=== PATIENT | female | born 1935 | race Caucasian/White ===

== ENCOUNTER 2017-11-04 07:03 | Day surgery (SDC) | payer MEDICARE, OTHER ==
[2017-11-04] VITALS (10 sets, daily range): BP systolic 123–164; BP diastolic 70–84; PULSE 63–82; RESP 16–18; TEMP 97.8–98.5; O2SAT 94–96
[~2017-11-04] VITALS: Ht 157.5 cm; Wt 84.3 kg
[~2017-11-04 07:03] MED LIST: ATEN25TA PO; CAFF200T PO; FLUT50SP EACH NARE; GABA100C4 PO; LEVO.1 PO; MELA1TAB18 PO; PRED10 PO; VITA500T83 PO
[2017-11-04] MEDS ORDERED: IOHEXOL 350 MG/ML 100 ML BTL (for Cath Lab) OTHER ONE (07:04)
[2017-11-04] MEDS ORDERED: IOHEXOL 350 MG/ML 50 ML BTL (for Cath Lab) OTHER ONE (07:04)
[2017-11-04] MEDS ORDERED: LOSA25TA PO (07:42)
[2017-11-04] MEDS ORDERED: CETI10 PO (07:42)
[2017-11-04 07:57] LABS: AUTOMATED NEUTROPHIL # 5.3 TH/MM3 (1.8-7.7); BASOPHIL # 0.1 TH/MM3 (0-0.2); BASOPHIL % 0.8 % (0.0-2.0); EOSINOPHIL # 0.1 TH/MM3 (0-0.4); EOSINOPHIL % 1.3 % (0.0-4.0); HEMATOCRIT 41.5 % (35.0-46.0); HEMOGLOBIN 14.1 GM/DL (11.6-15.3); LYMPH % 36.3 % (9.0-44.0); LYMPHOCYTE # 3.6 TH/MM3 (1.0-4.8); MEAN CELL VOLUME 90.4 FL (80.0-100.0); MEAN CORPUSCULAR HEMOGLOBIN 30.7 PG (27.0-34.0); MONO % 7.8 % (0.0-8.0); MONOCYTE # 0.8 TH/MM3 (0-0.9); NEUT % 53.8 % (16.0-70.0); PLATELET COUNT 484 TH/MM3 (150-450); RED BLOOD COUNT 4.59 MIL/MM3 (4.00-5.30); WHITE BLOOD COUNT 9.9 TH/MM3 (4.0-11.0)
[2017-11-04] MEDS: NS 1000P @30 MLS/HR (KVO) IV SCH ×2 (08:00→20:51)
[2017-11-04 08:16] LABS: BICARBONATE 27.4 MEQ/L (21.0-32.0); CALCIUM 8.6 MG/DL (8.5-10.1); CREATININE 0.91 MG/DL (0.50-1.00)
[2017-11-04] MEDS ORDERED: HEPARIN-NS/PF INJ 1,000 ML ONE ×2 (10:38→12:09)
[2017-11-04] MEDS ORDERED: MIDAZOLAM HCL 2 MG/2 ML VIAL ONE ×4 (10:38→12:55)
[2017-11-04] MEDS ORDERED: HEPARIN SODIUM - IV 10,000 UNITS/10 ML VIAL ONE (11:27)
--- NOTE | 2017-11-04 12:26 | EKG ---
Date Performed: 11/04/2017 Time Performed: 07:40:24 PTAGE: 82 years EKG: Sinus rhythm . Inferior infarct - age undetermined Abnormal ECG NO PREVIOUS TRACING DOCTOR: Milton Garcia Interpretating Date/Time 11/04/2017 12:24:34
[2017-11-04] MEDS ORDERED: TICAGRELOR 90 MG TAB PO ONE (12:38)
[2017-11-04] MEDS ORDERED: CANGRELOR TETRASODIUM 50,000 MCG VIAL ONE (12:55)
[2017-11-04] MEDS ORDERED: ASPIRIN 325 MG TAB ONE (13:20)
[2017-11-04] MEDS ORDERED: SODIUM CHLOR 0.9% 1000 ML INJ 1,000 ML IV SCH (14:13)
--- NOTE | 2017-11-04 14:19 | MA ---
cc: Teresa Benson MD DATE: 11/04/2017 INDICATIONS: Angina pectoris, class III angina, high risk abnormal nuclear myocardial perfusion study. PROCEDURE PERFORMED: 1. Retrograde left heart catheterization with left ventriculography and selective coronary angiography. 2. Angioplasty and stenting of the mid-left anterior descending coronary artery. 3. Angioplasty of the second diagonal branch of the left anterior descending artery. 4. Angioplasty and stenting of the right coronary artery. 5. Moderate sedation. ACCESS SITE: Right femoral artery. EQUIPMENT USED: 5-[place] pigtail catheter, 5-[place] JL4 and AR1 modified coronary artery catheters. XB 3.5 guide, Marker wire and BMW wire, 2.5 and 2.0 balloons for predilatation, 2.5 x 30 mm Jeremy stent at 12 atmospheres to the mid-LAD, post-dilated with 2.5 x 12 mm Non-Compliant balloon up to 24 atmospheres. Second diagonal artery was dilated through the stent struts with a 2.0 balloon. 3DRC guide, BMW wire, 3.0 x 30 mm [place] stent at 8 atmospheres, post-dilated with 3.5 and 4.0 Non-Compliant balloons. MEDICATIONS: Versed IV, fentanyl IV, heparin, IV nitroglycerin IC, Brilinta 180 mg p.o., Kengreal IV. CONTRAST: Omnipaque 330 cc. COMPLICATIONS: None. BLOOD LOSS: Less than 10 cc. METHOD OF HEMOSTASIS: Manual compression. RESULTS: A. HEMODYNAMICS: Heart rate 62 beats per minute. Left ventricular end-diastolic pressure 11 mmHg. Left ventricle 167/11. Aorta 167/66/109. B. LEFT VENTRICULOGRAPHY: Ejection fraction 60%. No mitral regurgitation. C. CORONARY ANGIOGRAPHY: The left main coronary artery has 30% ostial stenosis. Left anterior descending artery has 80% stenosis in the mid-portion distally to the second diagonal branch. First diagonal artery was a small, patent vessel. Second diagonal artery was a moderate-sized vessel with 70% ostial stenosis. Left circumflex artery had 50% stenosis in the mid-portion. OM1 was patent. Right coronary artery had 90% stenosis in the mid portion. PDA had 60% stenosis in the mid-portion. This was a small caliber vessel. PLV was patent. D. RESULTS OF INTERVENTION: Stenosis in the mid LAD 80%, lesion length 26 mm. Pre-SARAI flow 3, post-SARAI flow 3, post-stenosis 0. Stenosis in the second diagonal artery 70% ostial, lesion length 3 mm. Pre-SARAI flow 3, post-SARAI flow 3, post-stenosis 70%. Stenosis of the mid-right coronary artery 90%, lesion length 26 mm. Pre-SARAI flow 3, post-SARAI flow 3, post-stenosis 0. The patient developed chest pain and ST elevation after the stenting of the right coronary artery. The left coronary images revealed in-stent thrombosis of the proximal portion of the LAD stent. The stent was post-dilated using a 2.5 x 12 mm Non-Compliant balloon up to 24 atmospheres with a good result and a patent vessel at the end of the case. ASSESSMENT: 1. Severe multivessel coronary artery disease. 2. Overall preserved left ventricular systolic function. 3. Successful angioplasty and stenting of the mid-left anterior descending artery. 4. Angioplasty of the second diagonal artery. 5. Successful angioplasty and stenting of the mid-right coronary artery. DISPOSITION: Ms. Crouch will be monitored on telemetry after her procedure. We will continue Kengreal for 2 hours. We will continue long-term therapy with Brilinta and baby aspirin. We will continue aggressive modification of her cardiac risk factors. I will see her back for followup in our office after discharge. MD JESU Austin/ABNER , 01:43 PM , 02:18 PM VERNA
[2017-11-04] MEDS ORDERED: MORPHINE SULFATE 4 MG/ML INJ IV PUSH PRN (20:30)
[2017-11-04] MEDS: ATORVASTATIN 80 MG TAB PO SCH (20:52)
[2017-11-04] MEDS: GABAPENTIN 100 MG CAP PO SCH (20:52)
[2017-11-04] MEDS: ATENOLOL 25 MG TAB PO SCH (20:52)
[2017-11-04] MEDS: TICAGRELOR 90 MG TAB PO SCH (20:56)
[2017-11-05] VITALS (28 sets, daily range): BP systolic 130–140; BP diastolic 70–82; PULSE 64–92; RESP 16–18; TEMP 97.4–99.4; O2SAT 93–96
[2017-11-05 05:28] LABS: AUTOMATED NEUTROPHIL # 7.7 TH/MM3 (1.8-7.7); BASOPHIL # 0.1 TH/MM3 (0-0.2); BASOPHIL % 0.7 % (0.0-2.0); EOSINOPHIL # 0.1 TH/MM3 (0-0.4); HEMOGLOBIN 13.2 GM/DL (11.6-15.3); LYMPH % 17.8 % (9.0-44.0); LYMPHOCYTE # 1.9 TH/MM3 (1.0-4.8); MEAN CELL VOLUME 90.3 FL (80.0-100.0); MEAN CORPUSCULAR HEMOGLOBIN 30.5 PG (27.0-34.0); MEAN CORPUSCULAR HGB CONC 33.8 % (32.0-36.0); MEAN PLATELET VOLUME 7.9 FL (7.0-11.0); MONO % 8.2 % (0.0-8.0); MONOCYTE # 0.9 TH/MM3 (0-0.9); NEUT % 72.3 % (16.0-70.0); PLATELET COUNT 437 TH/MM3 (150-450); RED BLOOD COUNT 4.32 MIL/MM3 (4.00-5.30); RED CELL DISTRIBUTION WIDTH 14.9 % (11.6-17.2); WHITE BLOOD COUNT 10.7 TH/MM3 (4.0-11.0)
[2017-11-05 05:59] LABS: BICARBONATE 23.8 MEQ/L (21.0-32.0); CALCIUM 8.2 MG/DL (8.5-10.1); CREATININE 0.65 MG/DL (0.50-1.00)
[2017-11-05] MEDS: LEVOTHYROXINE SODIUM 100 MCG TAB PO SCH (06:00)
[2017-11-05 06:03] LABS: CHOLESTEROL/ HDL RATIO 2.55 RATIO; HDL CHOLESTEROL 71.5 MG/DL (40.0-60.0)
[2017-11-05] MEDS: ATENOLOL 25 MG TAB PO SCH ×2 (09:25→20:40)
[2017-11-05] MEDS: ASPIRIN 81 MG CHEW TAB PO SCH (09:26)
[2017-11-05] MEDS: TICAGRELOR 90 MG TAB PO SCH ×2 (09:26→20:40)
[2017-11-05] MEDS: GABAPENTIN 100 MG CAP PO SCH ×2 (09:26→20:39)
[2017-11-05] MEDS: LOSARTAN 25 MG TAB PO SCH (09:27)
[2017-11-05] MEDS: CETIRIZINE HCL 10 MG TAB PO SCH (09:27)
[2017-11-05] MEDS: predniSONE 10 MG TAB PO SCH (09:28)
[2017-11-05] MEDS ORDERED: ONDANSETRON HCL 4 MG/2 ML VIAL IV PUSH PRN (11:15)
--- NOTE | 2017-11-05 12:29 | PD.CARD.PN ---
Subjective Subjective Remarks Was nauseated earlier ths AM on Zofran has resolved. Mild continuous chest pressure CK elevated with postive MB. Says she is comfortable and has been up to BR wants to go home. Objective Medications Current Medications Medications (Trade) Dose Ordered Sig/Roni Route Start Time Stop Time Status Last Admin Sodium Chloride 1,000 ml @ 30 mls/hr Q24H IV 11/04/17 08:00 11/04/17 20:51 (Aspirin Chew) 81 mg DAILY PO 11/05/17 09:00 11/05/17 09:26 (Brilinta) 90 mg BID PO 11/04/17 21:00 11/05/17 09:26 (Lipitor) 80 mg HS PO 11/04/17 21:00 11/04/17 20:52 (Tenormin) 12.5 mg BID PO 11/04/17 21:00 11/05/17 09:25 (ZyrTEC) 10 mg DAILY PO 11/05/17 09:00 11/05/17 09:27 (Neurontin) 100 mg BID PO 11/04/17 21:00 11/05/17 09:26 (Synthroid) 100 mcg DAILY@0600 PO 11/05/17 06:00 11/05/17 06:00 (Cozaar) 25 mg DAILY PO 11/05/17 09:00 11/05/17 09:27 (Deltasone) 10 mg DAILY PO 11/05/17 09:00 11/05/17 09:28 (Morphine Inj) 2 mg Q3H PRN IV PUSH 11/04/17 20:30 11/04/17 22:18 (Zofran Inj) 4 mg Q6H PRN IV PUSH 11/05/17 11:15 11/05/17 11:09 Vital Signs / I&O Vital Signs Date Time Temp Pulse Resp B/P (MAP) Pulse Ox O2 Delivery O2 Flow Rate FiO2 11/05/17 11:00 98.0 76 16 138/72 (94) 96 11/05/17 07:00 97.4 74 18 138/81 (100) 96 11/05/17 06:00 66 11/05/17 05:00 78 11/05/17 04:00 74 11/05/17 03:00 73 11/05/17 02:49 98.3 75 18 130/70 (90) 95 6/23/18 02:00 71 11/05/17 01:00 79 11/05/17 00:00 81 11/04/17 23:15 98.4 79 16 143/78 (99) 96 11/04/17 23:15 16 11/04/17 23:00 74 11/04/17 22:00 82 11/04/17 21:00 82 11/04/17 20:34 97.8 71 18 125/74 (91) 94 11/04/17 20:00 78 11/04/17 19:00 78 11/04/17 18:16 63 11/04/17 17:59 98.5 65 18 123/70 (87) 96 11/04/17 13:45 93 Room Air I/O 11/04/17 11/04/17 11/04/17 11/05/17 11/05/17 11/05/17 07:00 15:00 23:00 07:00 15:00 23:00 Intake Total 720 ml Output Total 1300 ml Balance -580 ml Intake Oral 720 ml Output Urine Total 1300 ml Physical Exam No JVD Lungs clear No murmur or gallop Obese soft nontender abdomen no edema alert oreinted senory and motor intact. Laboratory Laboratory Tests Test 11/05/17 04:30 White Blood Count 10.7 TH/MM3 Red Blood Count 4.32 MIL/MM3 Hemoglobin 13.2 GM/DL Hematocrit 39.0 % Mean Corpuscular Volume 90.3 FL Mean Corpuscular Hemoglobin 30.5 PG Mean Corpuscular Hemoglobin Concent 33.8 % Red Cell Distribution Width 14.9 % Platelet Count 437 TH/MM3 Mean Platelet Volume 7.9 FL Neutrophils (%) (Auto) 72.3 % Lymphocytes (%) (Auto) 17.8 % Monocytes (%) (Auto) 8.2 % Eosinophils (%) (Auto) 1.0 % Basophils (%) (Auto) 0.7 % Neutrophils # (Auto) 7.7 TH/MM3 Lymphocytes # (Auto) 1.9 TH/MM3 Monocytes # (Auto) 0.9 TH/MM3 Eosinophils # (Auto) 0.1 TH/MM3 Basophils # (Auto) 0.1 TH/MM3 CBC Comment DIFF FINAL Differential Comment Blood Urea Nitrogen 10 MG/DL Creatinine 0.65 MG/DL Random Glucose 109 MG/DL Calcium Level 8.2 MG/DL Sodium Level 136 MEQ/L Potassium Level 3.5 MEQ/L Chloride Level 101 MEQ/L Carbon Dioxide Level 23.8 MEQ/L Anion Gap 11 MEQ/L Estimat Glomerular Filtration Rate 87 ML/MIN Total Creatine Kinase 862 U/L Creatine Kinase MB 77.4 NG/ML Creatine Kinase MB % 9.0 % Triglycerides Level 68 MG/DL Cholesterol Level 183 MG/DL LDL Cholesterol 98 MG/DL HDL Cholesterol 71.5 MG/DL Cholesterol/HDL Ratio 2.55 RATIO Assessment and Plan Assessment and Plan Small post procedure [place] stable now. Discussed with Dr Benson Plan: Hold discharge reevaluate tomorrow afternoon for discharge. Code Status Full Discussed Condition With Milton Lyons MD Nov 05, 2017 12:29
--- NOTE | 2017-11-05 17:09 | EKG ---
Date Performed: 11/04/2017 Time Performed: 15:51:52 PTAGE: 82 years EKG: Normal Sinus rhythm Acute lateral injury, possible acute myocardial infarction Compared to previous tracing, ST elevatio n laterally is new. Abnormal ECG PREVIOUS TRACING : 11/04/2017 07.40 DOCTOR: Pankaj Glass Interpretating Date/Time 11/05/2017 17:08:56
--- NOTE | 2017-11-05 17:09 | EKG ---
Date Performed: 11/05/2017 Time Performed: 04:54:06 PTAGE: 82 years EKG: Sinus rhythm Possible anterior infarct - age undetermined Lateral T wave changes are nonspecific Low QRS voltages in precordial leads Abnormal ECG Evolutionary ST-T wave changes, clinical correlation advised. PREVIOUS TRACING : 11/04/2017 15.51 DOCTOR: Pankaj Glass Interpretating Date/Time 11/05/2017 17:07:54
[2017-11-05] MEDS: ATORVASTATIN 80 MG TAB PO SCH (20:40)
[2017-11-06] VITALS (18 sets, daily range): BP systolic 128–142; BP diastolic 73–76; PULSE 62–90; RESP 16–18; TEMP 98.1–98.6; O2SAT 94–96
[2017-11-06] MEDS: LEVOTHYROXINE SODIUM 100 MCG TAB PO SCH (05:12)
[2017-11-06] MEDS: NS 1000P @30 MLS/HR (KVO) IV SCH (08:00)
[2017-11-06] MEDS: ATENOLOL 25 MG TAB PO SCH (09:49)
[2017-11-06] MEDS: LOSARTAN 25 MG TAB PO SCH (09:49)
[2017-11-06] MEDS: predniSONE 10 MG TAB PO SCH (09:50)
[2017-11-06] MEDS: TICAGRELOR 90 MG TAB PO SCH (09:50)
[2017-11-06] MEDS: ASPIRIN 81 MG CHEW TAB PO SCH (09:50)
[2017-11-06] MEDS: CETIRIZINE HCL 10 MG TAB PO SCH (09:50)
[2017-11-06] MEDS: GABAPENTIN 100 MG CAP PO SCH (09:50)
--- NOTE | 2017-11-06 14:30 | PD.CARD.PN ---
Subjective Subjective Remarks No further chest pressure or nausea wants to go home son at bedside. Objective Medications Current Medications Medications (Trade) Dose Ordered Sig/Roni Route Start Time Stop Time Status Last Admin Sodium Chloride 1,000 ml @ 30 mls/hr Q24H IV 11/04/17 08:00 11/06/17 08:00 (Aspirin Chew) 81 mg DAILY PO 11/05/17 09:00 11/06/17 09:50 (Brilinta) 90 mg BID PO 11/04/17 21:00 11/06/17 09:50 (Lipitor) 80 mg HS PO 11/04/17 21:00 11/05/17 20:40 (Tenormin) 12.5 mg BID PO 11/04/17 21:00 11/06/17 09:49 (ZyrTEC) 10 mg DAILY PO 11/05/17 09:00 11/06/17 09:50 (Neurontin) 100 mg BID PO 11/04/17 21:00 11/06/17 09:50 (Synthroid) 100 mcg DAILY@0600 PO 11/05/17 06:00 11/06/17 05:12 (Cozaar) 25 mg DAILY PO 11/05/17 09:00 11/06/17 09:49 (Deltasone) 10 mg DAILY PO 11/05/17 09:00 11/06/17 09:50 (Morphine Inj) 2 mg Q3H PRN IV PUSH 11/04/17 20:30 11/04/17 22:18 (Zofran Inj) 4 mg Q6H PRN IV PUSH 11/05/17 11:15 11/05/17 11:09 Vital Signs / I&O Vital Signs Date Time Temp Pulse Resp B/P (MAP) Pulse Ox O2 Delivery O2 Flow Rate FiO2 11/06/17 14:00 82 11/06/17 13:00 82 11/06/17 12:00 76 11/06/17 11:00 84 11/06/17 11:00 98.1 72 16 128/74 (92) 95 11/06/17 10:00 72 11/06/17 09:00 76 11/06/17 08:00 73 11/06/17 07:00 63 11/06/17 07:00 98.6 77 16 142/73 (96) 96 11/06/17 06:11 90 11/06/17 05:25 98.5 68 16 128/76 (93) 96 11/06/17 05:00 62 11/06/17 04:10 63 11/06/17 04:00 62 11/06/17 03:00 66 11/06/17 02:04 64 11/06/17 02:00 64 11/06/17 01:00 70 11/06/17 00:00 71 11/06/17 00:00 66 11/06/17 00:00 71 18 94 11/05/17 23:00 64 11/05/17 22:00 66 11/05/17 21:00 78 11/05/17 20:35 98.3 81 16 131/82 (98) 95 11/05/17 20:08 78 11/05/17 20:00 74 11/05/17 19:00 74 11/05/17 18:00 82 11/05/17 17:00 77 11/05/17 16:00 77 11/05/17 15:16 92 11/05/17 15:00 76 11/05/17 15:00 99.4 76 18 140/76 (97) 93 I/O 11/05/17 11/05/17 11/05/17 11/06/17 11/06/17 11/06/17 07:00 15:00 23:00 07:00 15:00 23:00 Intake Total 720 ml 720 ml 240 ml Output Total 1300 ml 800 ml 200 ml Balance -580 ml -80 ml 40 ml Intake Oral 720 ml 720 ml 240 ml Output Urine Total 1300 ml 800 ml 200 ml Physical Exam No JVD Lungs clear No murmur or gallop Obese soft nontender abdomen no edema alert oreinted senory and motor intact. Laboratory Stable for dischare has appt with Dr Benson on Rx written. Assessment and Plan Assessment and Plan Small post procedure [place] stable now. Discussed with Dr Benson Plan: Hold discharge reevaluate tomorrow afternoon for discharge. Milton Barrios MD Nov 06, 2017 14:30
== END 2017-11-06 16:30 | disposition home or self-care (01) ==
LOC: HDIC 07:03 → HDOC 07:03 → HCIS 17:13 → HDOC 11-06 16:30
PROVIDERS: ATTEND Internal Medicine Interventional Cardiology
DX: I25.110 Atherosclerotic heart disease of native coronary artery with unstable angina pectoris (principal); Q28.8 Other specified congenital malformations of circulatory system; Z79.899 Other long term (current) drug therapy
CPT/HCPCS: 80048; 80061; 82550; 82552; 85002; 85025; 85610; 85730; 92928; 92929; 93005; 93458; 99152; 99153; C1725; C1769; C1874; C1887; C1893; C9460; J1644; J2250; J2270; J2405; J3010; J7030; J7512; Q9967